=== PATIENT | male | born 1965 | race Caucasian/White ===

== ENCOUNTER 2017-01-20 04:21 | Emergency (ER) | payer OTHER, MEDICAID ==
[~2017-01-20] VITALS: Ht 177.8 cm; Wt 90.7 kg
[2017-01-20 04:21] VITALS: BP_SYST 110
--- NOTE | 2017-01-20 04:21 | NUR ---
Patient to ER bed 1 to gown for evaluation. Side rails up. Report given to CARLITO ERWIN.
--- NOTE | 2017-01-20 04:30 | NUR ---
Note marlaneno in ED - 01/20/17 at 0506 by SDNURAAMANDA Patient to be transferred to [facility]. Pt was transferred back to [facility] with exit care given to the paramedics. Patient belongings inventoried and will be sent with patient. Report called to Shaniqua Bateman RN at receiving facility.
--- NOTE | 2017-01-20 04:30 | NUR ---
Pt was bought in to ER via BLS from [facility] to check g-tube placement. Pt's information given by the paramedics. Pt nonverbal. G-tube noted at the left upper abdomen. Dressing clean and intact. Pt on treach. spo2 99%. No actue distress noted. will continue to monitor
--- NOTE | 2017-01-20 04:30 | NUR ---
ER at bedside examining patient.
[2017-01-20] MEDS ORDERED: GASTROGRAFIN 120 ML ONE (04:44)
--- NOTE | 2017-01-20 04:50 | NUR ---
Upper GI series with contrast taken. Pt comfortable. NO distress noted.
--- NOTE | 2017-01-20 04:55 | NUR ---
Patient to be transferred to [facility]. Pt was transferred back to [facility] with exit care given to the paramedics. Patient belongings inventoried and will be sent with patient. Report called to Shaniqua Bateman RN at receiving facility.
== END 2017-01-20 04:55 | disposition home or self-care (01) ==
LOC: SED 04:21
DX: Z43.1 Encounter for attention to gastrostomy (principal)
CPT/HCPCS: 43760; 74240; 99284; Q9963

== ENCOUNTER 2017-03-15 20:17 | Emergency (ER) | payer OTHER, MEDICAID ==
[~2017-03-15] VITALS: Ht 185.4 cm; Wt 84.8 kg
[2017-03-15 20:17] VITALS: BP_SYST 119
--- NOTE | 2017-03-15 20:17 | NUR ---
Patient to ER bed 8 to gown for evaluation. Side rails up. Report given to Nicola ERWIN.
--- NOTE | 2017-03-15 20:19 | NUR ---
Per pt, security system installer states that pt removed his Douglas catheter and that staff at the home facility have not been able to reinsert a new Douglas. Patient alert, eyes are able to follow when patient is spoken to. Patient not able to verbally respond, has tracheostomy and T tube. G tube present on patient. Scant blood with urine noted to patient's diaper. Per pt, security system installer denies any complaints.
--- NOTE | 2017-03-15 21:20 | NUR ---
ER Dr. Aly at bedside examining patient.
--- NOTE | 2017-03-15 21:40 | NUR ---
# 16 FR Douglas catheter with use of sterile technique. Immediate return of 40 cc yellow urine noted. Bedside drainage bag placed below level of bladder. Pt tolerated procedure well.
--- NOTE | 2017-03-15 22:30 | NUR ---
Per MD, patient is medically cleared. Awaiting transport back to facility.
--- NOTE | 2017-03-15 23:21 | NUR ---
Patient stable, no signs of distress noted. Vital signs within therapeutic range.
[2017-03-16 00:57] VITALS: BP_SYST 114
== END 2017-03-16 00:57 | disposition home or self-care (01) ==
LOC: EDBD → SED 20:17
DX: Z46.6 Encounter for fitting and adjustment of urinary device (principal); E11.9 Type 2 diabetes mellitus without complications; I10 Essential (primary) hypertension; K21.9 Gastro-esophageal reflux disease without esophagitis; Z86.2 Personal history of diseases of the blood and blood-forming organs and certain disorders involving the immune mechanism; Z93.1 Gastrostomy status
CPT/HCPCS: 99284

== ENCOUNTER 2017-03-18 03:13 | Inpatient (IN) | payer OTHER, MEDICAID ==
[2017-03-18] VITALS (7 sets, daily range): BP systolic 104–121
[~2017-03-18] VITALS: Ht 172.7 cm; Wt 85.7 kg
--- NOTE | 2017-03-18 03:13 | NUR ---
Patient to ER bed 2 to gown for evaluation. Side rails up. Report given to RISA ERWIN.
[2017-03-18] MEDS ORDERED: NACL 0.9% 1,000 ML IV ONE (03:34)
--- NOTE | 2017-03-18 03:35 | NUR ---
ANTONIO GUERRA Kwaw at bedside examining patient.
--- NOTE | 2017-03-18 03:40 | NUR ---
Patient LUKAS from [facility] with complaint of GT feeding not absorbing. [facility] personell want placement to be reconfirmed. Patient noted with 10 ml coffee brown residual.
--- NOTE | 2017-03-18 03:50 | NUR ---
# 22 gauge angiocath placed to left wrist. Use of asceptic technique. Opsite placed over site. Blood return noted. Blood for lab drawn from site. Flushed with 10 cc of normal saline. No evidence of infiltration noted. Patient tolerated well.
--- NOTE | 2017-03-18 03:50 | NUR ---
Note undone in EDM - 03/18/17 at 0514 by TOYA # [id number] angiocath placed to Left wrist. Use of asceptic technique. Opsite placed over site. Blood return noted. Blood for lab drawn from site. Flushed with 10 cc of normal saline. No evidence of infiltration noted. Patient tolerated well.
[2017-03-18 04:06] LABS: BASOPHILS % (AUTO) 0.3 % (0.0-2.0); EOSINOPHILS # (AUTO) 0.2 K/uL (0.0-0.4); EOSINOPHILS % (AUTO) 2.2 % (0.0-4.0); HEMATOCRIT 35.6 % (36-54); HEMOGLOBIN 11.6 g/dL (14.0-18.0); LYMPHOCYTES # (AUTO) 2.4 K/uL (1.0-5.5); LYMPHOCYTES % (AUTO) 25.9 % (20.5-51.5); MEAN CORPUSCULAR HEMOGLOBIN 30 pg (27-31); MEAN CORPUSCULAR HGB CONC 33 % (32-36); MEAN CORPUSCULAR VOLUME 93 fL (79.0-98.0); MONOCYTES # (AUTO) 0.9 K/uL (0.0-1.0); MONOCYTES % (AUTO) 10.4 % (1.7-9.3); NEUTROPHILS # (AUTO) 5.6 K/uL (1.8-7.7); NEUTROPHILS % (AUTO) 61.2 % (40.0-70.0); PLATELET COUNT (AUTO) 394 K/uL (130-430); RED BLOOD CELL COUNT(AUTO) 3.82 MIL/uL (4.2-6.2); RED CELL DISTRIBUTION WIDTH 13.2 % (9.0-15.0); WHITE BLOOD COUNT (AUTO) 9.1 K/uL (4.8-10.8)
[2017-03-18 04:17] LABS: CALCIUM 9.3 mg/dL (8.4-11.0); CREATININE 0.99 mg/dL (0.55-1.30); POTASSIUM 3.4 mmol/L (3.5-5.1)
[2017-03-18 04:22] LABS: TOTAL BILIRUBIN 1.5 mg/dL (0.0-1.0)
[2017-03-18 04:30] LABS: ALBUMIN 2.2 g/dL (3.4-4.8)
[2017-03-18] MEDS ORDERED: FAMOTIDINE PF 20 MG/2 ML VIAL IVP ONE (04:45)
[2017-03-18] MEDS ORDERED: NACL 0.9% 1,000 ML IV SCH ×2 (04:53→05:00)
[2017-03-18] MEDS ORDERED: ONDANSETRON HCL 4 MG/2 ML VIAL IVP PRN ×2 (05:00→10:00)
[2017-03-18] MEDS ORDERED: ACETAMINOPHEN 325 MG TABLET PO PRN ×2 (05:00→10:00)
[2017-03-18] MEDS ORDERED: MORPHINE 2 MG/ML INJ. SYRINGE IVP PRN ×3 (05:00→10:00)
[2017-03-18] MEDS ORDERED: IPRATROPIUM/ALBUTEROL SULFATE 3 ML AMPUL.NEB INH PRN (05:00)
--- NOTE | 2017-03-18 05:05 | NUR ---
No adverse reactions noted after medication administration. Will continue to monitor.
[2017-03-18] MEDS ORDERED: ASPI-1063 GT (05:12)
[2017-03-18] MEDS ORDERED: TOPI200T GT (05:12)
[2017-03-18] MEDS ORDERED: [UNRECOGNIZED DRUG - CODE] GT (05:12)
[2017-03-18] MEDS ORDERED: ASCO500T20 GT (05:12)
[2017-03-18] MEDS ORDERED: LEVE500S GT (05:12)
[2017-03-18] MEDS ORDERED: FER300L GT (05:12)
[2017-03-18] MEDS ORDERED: ACET-2165 GT (05:12)
[2017-03-18] MEDS ORDERED: NAPH1POW3 GT (05:12)
[2017-03-18] MEDS ORDERED: HYT1 GT (05:12)
[2017-03-18] MEDS ORDERED: POLY17PO4 GT (05:12)
[2017-03-18] MEDS ORDERED: SENN8.8S12 GT (05:12)
[2017-03-18] MEDS ORDERED: MAGN400T10 GT (05:12)
[2017-03-18] MEDS ORDERED: FAMO20TA8 GT (05:13)
[2017-03-18] MEDS ORDERED: CLON2TAB4 GT (05:13)
[2017-03-18] MEDS ORDERED: DEPAK250 GT (05:13)
[2017-03-18] MEDS ORDERED: LEVO100T9 GT (05:13)
[2017-03-18] MEDS ORDERED: PHEN100O4 GT (05:13)
--- NOTE | 2017-03-18 05:13 | NUR ---
Medication reconciliation completed with information provided by [facility]. Any prior medication reconciliation on file was reviewed and corrected.
--- NOTE | 2017-03-18 05:14 | NUR ---
Patient will be admitted to care of Dr. Javier. Admitted to Telemetry unit. Will go to room 119A. Belongings list completed. Summary report printed. Report will be given at bedside.
[2017-03-18 05:25] LABS: FREE T4 (FREE THYROXINE) 1.1 ng/dl (0.8-1.5); PHOSPHORUS 5.5 mg/dL (2.7-4.5); THYROID STIMULATING HORMONE 8.17 uIu/mL (0.36-3.74)
--- NOTE | 2017-03-18 05:28 | NUR ---
ADMIT NOTE Received pt from ER to the floor with a diagnosis of nephrolithiasis. Admission process initiated. patient oriented to pain management, safety and call light-teach back done.
--- NOTE | 2017-03-18 05:30 | NUR ---
Patient transferred to Telemetry unit room 119A. Report given to Samuel ERWIN.
[2017-03-18 06:04] LABS: BILIRUBIN,URINE 2+ (NEGATIVE); BLOOD, URINE 2+ (NEGATIVE); CLARITY/URINE CLOUDY (CLEAR); COLOR,URINE YELLOW (YELLOW); GLUCOSE,URINE NEGATIVE (NEGATIVE); KETONES,URINE NEGATIVE (NEGATIVE); LEUKOCYTE ESTERASE ,URINE 3+ (NEGATIVE); NITRITE, URINE NEGATIVE (NEGATIVE); PROTEIN URINE 1+ (NEGATIVE)
[2017-03-18 06:06] LABS: UROBILINOGEN,URINE >=8 (0.2-1.0)
[2017-03-18 06:10] LABS: BACTERIA,URINE MODERATE /HPF (None Seen); WBC,URINE >100 /HPF (0-3)
[2017-03-18 06:11] LABS: MUCUS,URINE None Seen /LPF (None Seen)
[2017-03-18] MEDS: CEFTRIAXONE SOD 1 GM/ DEXTROSE,ISO 50 ML PREMIX IV SCH (06:32)
[2017-03-18] MEDS ORDERED: cefTRIAXone 1 GM IVPB PREMIX 50 ML IV ONE (06:38)
--- NOTE | 2017-03-18 06:56 | NUR ---
Closing notes Patient awake, alert, oriented x2-3, slurred speech, hx of cerebral palsy. Patient able to state name, birthday, and able to follow simple commands. Patient hx of seizures, with seizure pads on rails. Patient seen by RT on admission, Trach T bar noted with 3 liters of oxygen flow. Suction equipment in room working condition. Patient with heels offloading and skin noted dry and cracking. Back clear. Buttock noted with linear gluteal slit open skin, picture taken. Patient needs assistance [id number]. Gtube needs placement confirmation, noted abdomen firm and distended. Will endorse information. Patient denies any pain or discomfort at this time. Vital signs within normal baseline.
--- NOTE | 2017-03-18 08:18 | NUR ---
Nutrition Update Johnathan Scale 13 noted. Pt admitted for nephrolithiasis. Diet: Fibersource HN at 40 ml/hr, Free Water Flush: 30 via GT BMI: 28.9 kg/m2 RD to follow per nutrition care standards.
--- NOTE | 2017-03-18 08:20 | NUR ---
Opening Note Patient awake and A/o x2. Follows simple commands. Patient has a Trach to Tbar at 3L. Breathing is shallow and diminished low lobes bilaterally. Abdomen distended with normoactive bowel sounds. Some bleeding noted in and around GTube, placement checked and gastric content residual noted. IV on left arm obstructed and new 22G IV placed on left hand running NS. Redness/blotchy discoloration on face noted. Patient placed for comfort, call light in reach.
[2017-03-18] MEDS ORDERED: COMMUNICATION ORDER XX ONE (08:45)
[2017-03-18] MEDS ORDERED: ACETAMINOPHEN 325 MG TABLET GT PRN ×2 (08:45→10:31)
[2017-03-18] MEDS ORDERED: cefTRIAXone 1 GM VIAL IV SCH (09:00)
[2017-03-18] MEDS ORDERED: DOCUSATE SODIUM 100 MG CAPSULE PO SCH (09:00)
[2017-03-18] MEDS ORDERED: DOCUSATE SODIUM 100 MG/10 ML UDC GT SCH (09:00)
[2017-03-18] MEDS ORDERED: DOCUSATE SODIUM 100 MG CAPSULE PO PRN (10:00)
[2017-03-18] MEDS ORDERED: ZOLPIDEM TARTRATE 5 MG TABLET PO PRN (10:00)
[2017-03-18] MEDS ORDERED: LORazepam 2 MG/ML VIAL IVP PRN (10:00)
[2017-03-18] MEDS ORDERED: MAGNESIUM SULFATE 50 ML IV PRN (10:00)
[2017-03-18] MEDS ORDERED: POTASSIUM CHLORIDE 20 MEQ TAB.PRT.SR PO ONE (10:00)
--- NOTE | 2017-03-18 10:00 | NUR ---
Rounds Wound care and hygiene provided. Extremities elevated on pillows, patient repositioned, call light in reach.
[2017-03-18] MEDS ORDERED: POTASSIUM CHLORIDE 20 MEQ/PKT PACKET PO ONE (10:45)
[2017-03-18] MEDS: D5NS 1,000 ML IV SCH (11:17)
--- NOTE | 2017-03-18 12:00 | NUR ---
Rounds Ultrasound of abdomen done. Patient resting in bed and stable.
[2017-03-18] MEDS: PHENYTOIN 100 MG/4 ML UDC (DILANTIN) GT SCH ×2 (13:11→21:28)
[2017-03-18] MEDS: VALPROIC ACID ORAL SYRUP 250 MG/5 ML UDC GT SCH ×2 (13:12→21:28)
--- NOTE | 2017-03-18 14:22 | NUR ---
Dr Dale Tijerina Notified him of the Labetalol and received new orders.
--- NOTE | 2017-03-18 14:44 | NUR ---
CONSULT GI GT MALFUNCTION DR TOVAR [phone] DR RHOADES MANAGER [facility] S/W [place] OFFICE @ 1821
--- NOTE | 2017-03-18 14:46 | NUR ---
CONSULT UROLOGY SEV HYDRONEPHROSIS DR OLEARY [phone] S/W [place] OFFICE @ 7511
--- NOTE | 2017-03-18 15:54 | NUR ---
Called patient's POA. Tameka Wilson for EGD consent Unable to reach her but spoke to officer Laly who is covering, she stated she will contact Tameka Wilson via Email regarding the need for consent for EGD, and they will get back to us with consent by tomorrow. If not Just call Tameka Wilson again.
--- NOTE | 2017-03-18 17:11 | NUR ---
Dr Doe - Urologist called back Notified him of the consult and CT scan results.
--- NOTE | 2017-03-18 17:40 | NUR ---
Consent for EGD Written consent received from Carmen Chakraborty from [facility]. Carmen spoke to Dr. Farias.
--- NOTE | 2017-03-18 18:15 | NUR ---
Dr Nader scott Md stated he wants to do a stent placement. Possibly tomorrow.
--- NOTE | 2017-03-18 18:16 | NUR ---
Called Tameka Wilson at the [facility]- left voice mail. Also left a voice message to the "traffic control officer" regarding need for consent. Will call again later or tomorrow.
--- NOTE | 2017-03-18 18:36 | NUR ---
Closing Note Patient stable and resting in bed. All needs met throughout shift. Patient is NPO except meds for EGD tomorrow.
[2017-03-18 19:29] LABS: PROTHROMBIN TIME 11.1 SECS (9.5-12.5)
--- NOTE | 2017-03-18 20:00 | NUR ---
Initial Notes Received patient resting in bed, awake, alert, oriented to name and place. Patient denies any acute distress or pain at this time. Vital signs stable. Breathing is even and unlabored on 3L via t-bar. IV site patent/clean/dry. G-tube site has small active bleeding noted on g-tube dressing, new dressing applied, will continue to monitor. Douglas draining yellow urine with sediments to gravity. Trach suctioning provided. Patient repositioned for comfort. Call light in hand, fall precautions in place. Will continue to monitor for changes and safety.
[2017-03-18] MEDS: PANTOPRAZOLE SODIUM 40 MG/VIAL (PROTONIX) IVP SCH (21:27)
[2017-03-18] MEDS: TOPIRAMATE 100 MG TABLET(Topamax) GT SCH (21:27)
[2017-03-18] MEDS: FERROUS SULFATE 300 MG/5 ML UDC GT SCH (21:28)
[2017-03-18] MEDS: levETIRAcetam 500 MG TABLET GT SCH (21:28)
--- NOTE | 2017-03-18 22:00 | NUR ---
Rounds Patient resting in bed watching TV. Patient denies any acute distress or pain at this time. Breathing is even and unlabored, trach suctioning provided. Douglas draining to gravity. Patient remains NPO for procedure tomorrow. Patient repositioned, HOB elevated. Call light in hand, will continue to monitor.
--- NOTE | 2017-03-19 | NUR ---
Rounds Patient resting in bed watching TV. Patient denies any acute distress or pain at this time. Breathing is even and unlabored, trach suctioning provided. IV site patent/clean/dry. Douglas draining to gravity. Patient had large pasty bowel movement, assisted REAL ESTATE ANALYST with incontinence care. Patient repositioned for comfort. Call light in hand, fall precautions in place.
[2017-03-19] MEDS: D5NS 1,000 ML IV SCH ×2 (00:45→14:35)
[2017-03-19 01:02] VITALS: BP_SYST 118
--- NOTE | 2017-03-19 02:00 | NUR ---
Rounds Patient resting in bed with eyes closed, easily aroused upon nurse entering room. Patient denies any acute distress or pain at this time. Breathing is even and unlabored, trach and oral suctioning provided. IV site patent/clean/dry. Douglas cath draining to gravity. Patient repositioned for comfort. Patient remains NPO. Call light in hand, will continue to monitor.
[2017-03-19 03:24] VITALS: BP_SYST 120
--- NOTE | 2017-03-19 04:00 | NUR ---
Rounds Patient resting in bed with eyes closed, easily aroused. Patient denies any acute distress or pain at this time. Breathing is even and unlabored. IV site patent/clean/dry. Douglas cath draining to gravity. Patient repositioned for comfort. Patient remains NPO. Call light in hand, will continue to monitor.
[2017-03-19] MEDS: CEFTRIAXONE SOD 1 GM/ DEXTROSE,ISO 50 ML PREMIX IV SCH (06:04)
[2017-03-19] MEDS: VALPROIC ACID ORAL SYRUP 250 MG/5 ML UDC GT SCH ×3 (06:05→21:12)
[2017-03-19] MEDS: PHENYTOIN 100 MG/4 ML UDC (DILANTIN) GT SCH ×3 (06:05→21:12)
[2017-03-19] MEDS: LEVOTHYROXINE SODIUM 0.1 MG TABLET GT SCH (06:05)
--- NOTE | 2017-03-19 06:33 | NUR ---
Closing Notes Patient resting in bed with eyes closed, easily aroused, no change in mentation. Patient denies any acute distress or pain. Breathing is even and unlabored, trach suctioning provided. IV site patent/clean/dry, no S/S infection/infiltration noted. Douglas cath draining yellow urine to gravity. Patient remains NPO for procedure today. All needs addressed throughout shift. Call light in hand, fall precautions in place. Will continue to monitor for changes and safety, and endorse all patient care/needs to oncoming nurse.
[2017-03-19 06:42] LABS: BASOPHILS % (AUTO) 0.3 % (0.0-2.0); EOSINOPHILS # (AUTO) 0.3 K/uL (0.0-0.4); EOSINOPHILS % (AUTO) 4.1 % (0.0-4.0); HEMATOCRIT 32.4 % (36-54); HEMOGLOBIN 10.8 g/dL (14.0-18.0); LYMPHOCYTES # (AUTO) 1.8 K/uL (1.0-5.5); LYMPHOCYTES % (AUTO) 24.2 % (20.5-51.5); MEAN CORPUSCULAR HEMOGLOBIN 31 pg (27-31); MEAN CORPUSCULAR HGB CONC 33 % (32-36); MEAN CORPUSCULAR VOLUME 94 fL (79.0-98.0); MONOCYTES # (AUTO) 0.8 K/uL (0.0-1.0); MONOCYTES % (AUTO) 11.1 % (1.7-9.3); NEUTROPHILS # (AUTO) 4.5 K/uL (1.8-7.7); NEUTROPHILS % (AUTO) 60.3 % (40.0-70.0); PLATELET COUNT (AUTO) 400 K/uL (130-430); RED BLOOD CELL COUNT(AUTO) 3.45 MIL/uL (4.2-6.2); WHITE BLOOD COUNT (AUTO) 7.4 K/uL (4.8-10.8)
[2017-03-19 06:47] LABS: PROTHROMBIN TIME 11.2 SECS (9.5-12.5)
[2017-03-19 06:56] LABS: CALCIUM 9.1 mg/dL (8.4-11.0); CREATININE 0.95 mg/dL (0.55-1.30); PHOSPHORUS 3.1 mg/dL (2.7-4.5); POTASSIUM 3.4 mmol/L (3.5-5.1)
[2017-03-19] MEDS: MEPERIDINE HCL/PF 100 MG/ML AMP ONE ×3 (07:39→08:16)
[2017-03-19] MEDS: MIDAZOLAM HCL 5 MG/5 ML VIAL ONE ×3 (07:39→08:16)
--- NOTE | 2017-03-19 07:51 | NUR ---
OPENING NOTE RECEIVED PATIENT REPORT FROM FIELD EVIDENCE TECHNICIAN NURSEIAN. PATIENT IS RESTING COMFORTABLY. NO NOTABLE SIGNS OF DISTRESS. PATIENT HAS TRACH IN PLACE AND TBAR OXYGEN AT 3L. PATIENT HAS IV RUNNING PER MD ORDERS. PATIENT IS CURRENTLY NPO, TUBE FEEDINGS DISCONTINUED AT MIDNIGHT IN PREP FOR EGD, TO CHECK GTUBE PLACEMENT. PATIENT HAS MILD BLEEDING AT GTUBE SITE. PATIENT IS ON SEIZURE PRECAUTIONS, PFEIFFER CATHETER DRAINING TO GRAVITY. PATIENT HAS SCDS APPLIED AND LOW AIR LOSS MATTRESS. PATIENTS BED IN LOWEST POSITION, CALL LIGHT WITHIN REACH, AND SIDE RAILS ARE UP FOR SAFETY MEASURES. WILL CONTINUE TO MONITOR PATIENT FOR CHANGES IN STATUS. PATIENT TO HAVE EGD, CONSENT IS SIGNED AND IN THE CHART. MEASURES HAVE BEEN TAKEN TO OBTAIN CONSENT FOR CYSTOSCOPY WITH STENT PLACEMENT. PATIENT HAS CONSERVATOR THAT WILL BE RESPONSIBLE FOR CONSENT SIGNING. WILL FOLLOW UP.
[2017-03-19 08:13] LABS: T4 (THYROXINE) 8.9 ug/dL (4.5-12.0)
--- NOTE | 2017-03-19 08:38 | NUR ---
CONSENT SPOKE WITH JACOB PULIDO REGARDING CONSENT FOR CYSTOSCOPY WITH STENT PLACEMENT. PHONE NUMBERS WERE GIVEN FOR DR. OLEARY AND DR. JUAREZ. INFORMATION WILL BE GIVEN TO MEDICAL TEAM, AWAITING CONSENT FOR PROCEDURE.
--- NOTE | 2017-03-19 08:49 | NUR ---
EGD EGD COMPLETED AT BEDSIDE WITH DR. TOVAR. PATIENT DX GASTRITIS. 1 BIOPSY PERFORMED FOR CLOTEST. MEDICATIONS: 37.5 DEMEROL; 1.5 VERSED. OKAY TO RESUME TUBEFEEDING PER DR. TOVAR. FIBERSOURCE HN AT 50ML. FREE WATER AT 200ML. HOLD IF RESIDUAL OVER 200. RESUME AT 100ML. PATIENT VITAL SIGNS ARE STABLE AT: 103/62; 70HR; RR 12; 96%; 98.1 TEMP.
[2017-03-19 08:58] VITALS: BP_SYST 103
--- NOTE | 2017-03-19 09:13 | NUR ---
NOTE SPOKE WITH NESSA REGARDING CONSENT, INFORMATION GIVEN REGARDING DR. OLEARY. INFORMATION NEEDED WAS DR. OLEARY'S FIRST NAME, AND OFFICE PHONE NUMBER AND PROCESS NEEDED TO GET INTO CONTACT WITH DR. OLEARY. WILL CONTINUE TO FOLLOW UP NEEDED.
[2017-03-19] MEDS: PANTOPRAZOLE SODIUM 40 MG/VIAL (PROTONIX) IVP SCH ×2 (09:31→21:11)
[2017-03-19] MEDS: POLYETHYLENE GLYCOL 3350, 17 GM/ POWD.PACK GT SCH (09:31)
[2017-03-19] MEDS: FERROUS SULFATE 300 MG/5 ML UDC GT SCH ×2 (09:31→21:12)
[2017-03-19] MEDS: ASPIRIN 81 MG TAB.CHEW GT SCH (09:32)
[2017-03-19] MEDS: TOPIRAMATE 100 MG TABLET(Topamax) GT SCH ×2 (09:32→21:12)
[2017-03-19] MEDS: levETIRAcetam 500 MG TABLET GT SCH ×2 (09:32→21:11)
[2017-03-19] MEDS: TERAZOSIN HCL 1 MG CAPSULE (HYTRIN) GT SCH (09:32)
[2017-03-19] MEDS ORDERED: IOHEXOL 0 ML IV ONE (09:41)
--- NOTE | 2017-03-19 09:53 | NUR ---
TUBEFEEDING HELD TUBEFEEDING PATIENT IS NEEDING PROCEDURE CYSTOSCOPY WITH STENT PLACEMENT. AWAITING CONSENT FOR PROCEDURE FROM CONSERVATOR.
--- NOTE | 2017-03-19 11:04 | NUR ---
1000 NOTE PATIENT IS RESTING COMFORTABLY. NO NOTABLE SIGNS OF DISTRESS. PATIENT HAS TRACH IN PLACE AND TBAR OXYGEN AT 3L. PATIENT HAS IV RUNNING PER MD ORDERS. PATIENT IS CURRENTLY NPO, TUBE FEEDINGS DISCONTINUED AT MIDNIGHT IN PREP FOR CYSTOSCOPY AND EGD. PATIENT HAS MILD BLEEDING AT GTUBE SITE. DRESSING CHANGE NEEDED. PATIENT IS ON SEIZURE PRECAUTIONS, PFEIFFER CATHETER DRAINING TO GRAVITY. PATIENT HAS SCDS APPLIED AND LOW AIR LOSS MATTRESS. PATIENTS BED IN LOWEST POSITION, CALL LIGHT WITHIN REACH, AND SIDE RAILS ARE UP FOR SAFETY MEASURES. WILL CONTINUE TO MONITOR PATIENT FOR CHANGES IN STATUS. MEASURES HAVE BEEN TAKEN TO OBTAIN CONSENT FOR CYSTOSCOPY WITH STENT PLACEMENT. PATIENT HAS CONSERVATOR THAT WILL BE RESPONSIBLE FOR CONSENT SIGNING. WILL CONTINUE TO FOLLOW UP.
[2017-03-19 11:39] VITALS: BP_SYST 102
--- NOTE | 2017-03-19 11:58 | NUR ---
POWER OF WAX PATTERN REPAIRER SPOKE WITH SARAH BETH PERLA REGARDING STATUS OF CONSENT FOR CYSTOSCOPY WITH STENT PLACEMENT. SHE WILL CALL BACK, GIVEN DIRECT LINE EXTENSION.
--- NOTE | 2017-03-19 12:22 | NUR ---
URINE RESULTS KIAN FROM LAB CALLED REGARDING URINE CULTURE: SHOWS PRESUMPTIVE MRSA. WILL CALL CATHIE REGARDING RESULTS.
--- NOTE | 2017-03-19 12:28 | NUR ---
CATHIE BAUTISTA SPOKE WITH DR. BRAND REGARDING EKG FOR SURGERY, AND URINE CULTURE RESULTS. STAT EKG TO BE ORDERED AND VANCO PER PHARMACY. ORDERS TO BE ENTERED BY RN.
--- NOTE | 2017-03-19 12:42 | NUR ---
CONSERVATOR: SPOKE WITH SARAH BETH PERLA "NEXT OF KIN" REGARDING STATUS AND PROCESS IN WHICH WE NEED TO FOLLOW FOR THE CONSENT, WELL CHECKING STATUS. SHE STATED THE NURSE DAVID WAS CALLING HER ON THE OTHER LINE AND SHE WOULD CALL BACK.
--- NOTE | 2017-03-19 12:43 | NUR ---
CONSERVATOR/CONSENT: SPOKE WITH DAVID BOWLING THE NURSE THAT IS TO PRESENT INFORMATION FOR CONSENT. SHE STATES SHE HAS BEEN TRYING TO GET IN CONTACT WITH DR. OLEARY THROUGH HIS OFFICE BUT HAS NOT HEARD FROM HIM. I TOLD HER HE WAS IN THE FACILITY COMPLETING ANOTHER CASE AND THAT THE NURSE FROM THE OPERATING ROOM WAS STANDING WITH ME AT THE NURSES STATION. I WAS GIVEN HER DIRECT LINE, AND TOLD: "WE NEED THE RISKS VERSUS BENEFITS OF PROCEDURE FROM DR. OLEARY, ONCE WE HAVE THE INFORMATION WE WILL BE ABLE TO PRESENT THE CASE TO THE MEDICAL TEAM." HER DIRECT LINE WAS WRITTEN AND GIVEN TO JONELLE, NURSE, TO BE GIVEN TO DR. OLEARY FOR THE PROCESS TO BEGIN. DR. OLEARY IS OKAY WITH SENDING THE PATIENT TO [facility] TOMORROW. WILL FOLLOW UP WITH JONELLE.
--- NOTE | 2017-03-19 15:10 | NUR ---
PATIENT CARE: PATIENTS FACE HAD LARGE SKIN FLAKES, DRY LIPS, AND, ORAL CARE NEEDED TO COMPLETED. FACE WAS CLEANSED WITH CLEANSING SPRAY AND GAUZE, LOTION APPLIED. PATIENT ORAL CARE COMPLETED, SUCTIONING NEEDED. PATIENT HAD LOTION APPLIED TO UPPER CHEST, FACE, AND NECK. PATIENT REPOSITIONED WITH PILLOW SUPPORT.
--- NOTE | 2017-03-19 16:46 | NUR ---
1600 NOTE PATIENT IS RESTING COMFORTABLY. NO NOTABLE SIGNS OF DISTRESS. PATIENT HAS TRACH IN PLACE AND TBAR OXYGEN AT 3L. PATIENT HAS IV RUNNING PER MD ORDERS. PATIENT IS CURRENTLY NPO, TUBE FEEDINGS DISCONTINUED AT MIDNIGHT IN PREP FOR CYSTOSCOPY AND EGD. AWAITING MD ORDERS TO RESUME FEEDING. PHONE CALL PLACED TO MD VIA OFFICE. PATIENT HAS MILD BLEEDING AT GTUBE SITE. DRESSING CHANGE NEEDED. PATIENT IS ON SEIZURE PRECAUTIONS, PFEIFFER CATHETER DRAINING TO GRAVITY. PATIENT HAS SCDS APPLIED AND LOW AIR LOSS MATTRESS. PATIENTS BED IN LOWEST POSITION, CALL LIGHT WITHIN REACH, AND SIDE RAILS ARE UP FOR SAFETY MEASURES. WILL CONTINUE TO MONITOR PATIENT FOR CHANGES IN STATUS. MEASURES HAVE BEEN TAKEN TO OBTAIN CONSENT FOR CYSTOSCOPY WITH STENT PLACEMENT. PATIENT HAS CONSERVATOR THAT WILL BE RESPONSIBLE FOR CONSENT SIGNING. WILL CONTINUE TO FOLLOW UP.
[2017-03-19 17:53] VITALS: BP_SYST 104
[2017-03-19] MEDS: VANCOMYCIN HCL 1,250 MG in NS 250 ML IV SCH (18:16)
--- NOTE | 2017-03-19 18:25 | NUR ---
1310 SUCTIONED THICK WHITE SECRETIONS. Addendum: 03/19/17 at 1827 by Irma Mccartney RT Amended: Links added.
--- NOTE | 2017-03-19 19:06 | NUR ---
1600/CLOSING NOTE AWAITING TO GIVE REPORT TO LATEX FOAM WORKER NURSE. PATIENT IS RESTING COMFORTABLY. NO NOTABLE SIGNS OF DISTRESS. PATIENT HAS TRACH IN PLACE AND TBAR OXYGEN AT 3L. PATIENT HAS IV RUNNING PER MD ORDERS. SPOKE WITH MARIELA HERNDON TO RESUME TUBEFEEDING FOR NOW, WHILE AWAITING CONSENT FOR SURGERY. PATIENT HAS MILD BLEEDING AT GTUBE SITE. DRESSING CHANGE NEEDED. PATIENT IS ON SEIZURE PRECAUTIONS, PFEIFFER CATHETER DRAINING TO GRAVITY. PATIENT HAS SCDS APPLIED AND LOW AIR LOSS MATTRESS. PATIENTS BED IN LOWEST POSITION, CALL LIGHT WITHIN REACH, AND SIDE RAILS ARE UP FOR SAFETY MEASURES. WILL CONTINUE TO MONITOR PATIENT FOR CHANGES IN STATUS. MEASURES HAVE BEEN TAKEN TO OBTAIN CONSENT FOR CYSTOSCOPY WITH STENT PLACEMENT. PATIENT HAS CONSERVATOR THAT WILL BE RESPONSIBLE FOR CONSENT SIGNING. SPOKE WITH DR. OLEARY WITHIN THE HOUR REGARDING TUBEFEEDING RESUME, ALSO CHECKED TO SEE IF HE WAS ABLE TO CALL NESSA WITH THE INFORMATION NEEDED. STATES HE WILL CALL AND TAKE CARE OF IT. Addendum: 03/19/17 at 1909 by Vee Maddox RN 1800/CLOSING NOTE
[2017-03-19 20:00] VITALS: BP_SYST 110
--- NOTE | 2017-03-19 20:00 | NUR ---
Initial Notes Received patient resting in bed with eyes closed, easily aroused. Patient oriented to name and place, developmentally delayed. Patient denies any acute distress or pain at this time. Vital signs stable. Breathing is even and unlabored on 3L via t-bar. IV site patent/clean/dry. G-tube site has small active bleeding noted on g-tube dressing, will continue to monitor. Douglas draining cloudy yellow urine with sediments to gravity. Trach and oral suctioning provided, thick white secretions noted. Patient repositioned for comfort. Monitoring tube feeding and residual to determine tolerance at this time, HOB elevated. Call light in hand, fall precautions in place. Will continue to monitor for changes and safety.
--- NOTE | 2017-03-19 22:00 | NUR ---
Rounds Patient resting in bed with eyes closed, easily aroused. Patient denies any acute distress or pain at this time. Breathing is even and unlabored, trach suctioning provided. Douglas cath draining to gravity. IV site patent/clean/dry. Patient repositioned for comfort, HOB elevated. Call light in hand.
[2017-03-20] VITALS (7 sets, daily range): BP systolic 101–135
--- NOTE | 2017-03-20 | NUR ---
Rounds Patient resting in bed with eyes closed, easily aroused. Patient denies any acute distress or pain at this time. Breathing is even and unlabored. Douglas cath draining to gravity. IV site patent/clean/dry. G-tube feeding residual checked, 250ml, feeding stopped per MD orders. Patient repositioned for comfort, HOB. Call light in hand, fall precautions in place.
[2017-03-20 00:16] LABS: HEMOGLOBIN A1C 5.2 % (4.8-5.6)
--- NOTE | 2017-03-20 02:00 | NUR ---
Rounds Patient resting in bed with eyes closed, easily aroused. Patient denies any acute distress or pain at this time. Trach and oral suctioning provided. G-tube residual checked, 210ml, patient not tolerating tube feeding. G-tube flushed to maintain patency and clamped, will inform MD in AM patient unable to tolerate feeding. Patient repositioned for comfort. Call light in hand.
[2017-03-20] MEDS: VANCOMYCIN HCL 1,250 MG in NS 250 ML IV SCH (03:54)
--- NOTE | 2017-03-20 04:30 | NUR ---
Rounds Patient resting in bed watching TV. Patient denies any acute distress or pain at this time. Breathing is even and unlabored. IV site patent/clean/dry. Douglas draining to gravity. Patient had large brown pasty bowel movement. Assisted WORKERS' COMPENSATION MAGISTRATE with incontinence care, CHG bath, and linen change. Rechecked g-tube feeding residual, 160ml, continuing to hold tube feeding. HOB elevated. Call light in hand.
[2017-03-20] MEDS: LEVOTHYROXINE SODIUM 0.1 MG TABLET GT SCH (06:01)
[2017-03-20] MEDS: VALPROIC ACID ORAL SYRUP 250 MG/5 ML UDC GT SCH ×3 (06:01→22:06)
[2017-03-20] MEDS: CEFTRIAXONE SOD 1 GM/ DEXTROSE,ISO 50 ML PREMIX IV SCH (06:01)
[2017-03-20] MEDS: PHENYTOIN 100 MG/4 ML UDC (DILANTIN) GT SCH ×3 (06:02→22:05)
[2017-03-20 06:27] LABS: BASOPHILS % (AUTO) 0.4 % (0.0-2.0); EOSINOPHILS # (AUTO) 0.3 K/uL (0.0-0.4); HEMATOCRIT 29.9 % (36-54); LYMPHOCYTES # (AUTO) 1.9 K/uL (1.0-5.5); LYMPHOCYTES % (AUTO) 30.9 % (20.5-51.5); MEAN CORPUSCULAR HEMOGLOBIN 32 pg (27-31); MEAN CORPUSCULAR HGB CONC 34 % (32-36); MEAN CORPUSCULAR VOLUME 94 fL (79.0-98.0); MONOCYTES # (AUTO) 0.6 K/uL (0.0-1.0); MONOCYTES % (AUTO) 10.3 % (1.7-9.3); NEUTROPHILS # (AUTO) 3.5 K/uL (1.8-7.7); NEUTROPHILS % (AUTO) 53.4 % (40.0-70.0); PLATELET COUNT (AUTO) 366 K/uL (130-430); RED BLOOD CELL COUNT(AUTO) 3.17 MIL/uL (4.2-6.2); RED CELL DISTRIBUTION WIDTH 12.8 % (9.0-15.0); WHITE BLOOD COUNT (AUTO) 6.3 K/uL (4.8-10.8)
[2017-03-20 06:36] LABS: CALCIUM 8.9 mg/dL (8.4-11.0); POTASSIUM 3.3 mmol/L (3.5-5.1)
[2017-03-20 06:37] LABS: CREATININE 0.75 mg/dL (0.55-1.30)
--- NOTE | 2017-03-20 06:39 | NUR ---
Closing Notes Patient resting with eyes closed, easily aroused, no change in mentation. Patient denies any acute distress or pain at this time. Breathing is even and unlabored, trach suctioning provided. IV site patent/clean/dry, no S/S infection/infiltration noted. Douglas draining cloudy yellow urine to gravity. G-tube feeding remains off per MD orders due to excessive residual. Needs addressed throughout shift. Call light in hand, fall precautions in place. Will continue to monitor for changes and safety, and endorse all patient care/needs to oncoming nurse.
--- NOTE | 2017-03-20 07:55 | NUR ---
initial notes rec patient asleep but arousable to stimuli. hob slightly elevated with a trache at 3 liters connected to t bar. no acute distress noted. gt feeding is held right now and will continue to monitor re residual. ivl infusing well on the l hand. no infiltration noted. acevedo cath intact in place. bed in low position and side rails up and locked. on contact isolation for mrsa urine.
[2017-03-20] MEDS: POLYETHYLENE GLYCOL 3350, 17 GM/ POWD.PACK GT SCH (08:51)
[2017-03-20] MEDS: D5NS 1,000 ML IV SCH (08:51)
[2017-03-20] MEDS: PANTOPRAZOLE SODIUM 40 MG/VIAL (PROTONIX) IVP SCH ×2 (08:52→22:04)
[2017-03-20] MEDS: TOPIRAMATE 100 MG TABLET(Topamax) GT SCH ×2 (08:52→22:04)
[2017-03-20] MEDS: FERROUS SULFATE 300 MG/5 ML UDC GT SCH ×2 (08:52→22:01)
[2017-03-20] MEDS: levETIRAcetam 500 MG TABLET GT SCH ×2 (08:53→22:04)
[2017-03-20] MEDS: ASPIRIN 81 MG TAB.CHEW GT SCH (08:53)
[2017-03-20] MEDS: POTASSIUM CHLORIDE 10 MEQ TAB.PRT.SR PO PRN (08:53)
--- NOTE | 2017-03-20 09:58 | NUR ---
CONSULTATION PAGED REASON FOR CONSULTATION:MDRO WAS CONSULT CALLED?:Y PERSON WHO WAS NOTIFIED:AME CONSULTING PHYSICIAN:MICHAEL DELEON FITNESS ATTENDANT SPECIALTY:INFECTIOUS DISEASE FITNESS ATTENDANT PHONE NUMBER:[phone] REQUESTING PHYSICIAN:ZEHRA CAREY
--- NOTE | 2017-03-20 10:00 | NUR ---
sonia deutsch called and spoke with shayne deutsch at 12 noon. explained to her that has to call [facility]. sec of called and spoke with hernesto and took the number of saundra from the [facility] (conservator) specified with hernesto to pls call me once speak with the conservator. will be following up re this matter.
--- NOTE | 2017-03-20 11:57 | NUR ---
1150 SUCTIONED SMALL THICK WHITE SECRETIONS. NO DISTRESS NOTED. Addendum: 03/20/17 at 1159 by Irma Mccartney RT Amended: Links added.
[2017-03-20] MEDS ORDERED: IOHEXOL 50 ML IV ONE (12:40)
--- NOTE | 2017-03-20 12:50 | NUR ---
rounds seen by at the bedside and signed informed consent. suctioned prior to picking up patient and scanty amount of whitish phlegm. pt left the floor for sx via bed. no acute distress noted.
[2017-03-20] MEDS: LR 1,000 ML IV SCH ×2 (13:10→18:03)
[2017-03-20] MEDS ORDERED: MEPERIDINE HCL/PF 25 MG/ML DISP.SYRIN IVP PRN (13:15)
[2017-03-20] MEDS ORDERED: HYDROmorphone 2 MG/ML VIAL IVP PRN ×2 (13:15)
[2017-03-20] MEDS ORDERED: HYDROmorphone 1 MG INJ. 1 MG/ML AMPUL IVP PRN (13:15)
--- NOTE | 2017-03-20 14:41 | NUR ---
Dietitian Recommendations * Recommend continuing Fibersource HN at 50 ml/hr, Free Water Flush: 200 via GT Provides: 1440 kcal/day, 65 gm protein/day, and 1172 ml free water/day Meets: 81% of lower end of estimated caloric needs and 94% of lower end of estimated protein needs LP, RD Please refer to Nutrition Assessment for details.
--- NOTE | 2017-03-20 15:00 | NUR ---
rounds pt back from rr s/p cystoscopy and stent placement. with a acevedo cath draining to light orange output. stable will monitor bp was low in rr as per nurse rn leonardo 111/51 for now.
[2017-03-20] MEDS: LEVOFLOXACIN 500 MG/D5W 100 ML IV SCH (18:05)
--- NOTE | 2017-03-20 18:16 | NUR ---
1745 TRACH CARE DONE, SUCTIONED THICK WHITE SECRETIONS. Addendum: 03/20/17 at 1816 by Irma Mccartney RT Amended: Links added.
[2017-03-20] MEDS: TERAZOSIN HCL 1 MG CAPSULE (HYTRIN) GT SCH (18:21)
[2017-03-20] MEDS: LINEZOLID 300 ML IV SCH ×2 (18:25→21:00)
--- NOTE | 2017-03-20 18:33 | NUR ---
closing notes due meds given as ordered. gt feeding was started at 30 cc/hr. no residual noted. hob elevated and no acute distress noted. trache connected to t bar at 3 liters via nasal cannula. bed in low position and side rails up and locked. resting quietly , stable needs attended.
--- NOTE | 2017-03-20 20:50 | NUR ---
CONTINUATION OF NOTES: HAS SLIGHT BLEEDING ON PENILE AREA. ONEYDA CARE DONE. TURN TO SIDE. ON SEMI FOWLERS POSITION. SECRETIONS VIA TRACHE SUCTIONED WITH GOOD COUGH REFLEX. CALL LIGHT WITHIN REACH.BED IN LOW POSITION. URINE BAG OFF FLOOR. WILL MONITOR CLOSELY.
--- NOTE | 2017-03-20 20:50 | NUR ---
INITIAL NOTES: PATIENT IN BED AWAKE,NOD HEAD WHEN TOLD HIM HIS FULL NAME. NON VERBAL. MOVES HANDS ON COMMANDS. ON O2 VIA TRACHE,FEEDING AT 30ML/HR,IVF AT 70ML/HR SITE CLEAR. PFEIFFER W./ LIGHT PINKISH WITH MUCUS ,FAIR AMOUNT. BP ST
--- NOTE | 2017-03-20 22:05 | NUR ---
MEDS ADMIN/RESIDUAL: ALL DUE G TUBE MEDS GIVEN. RESIDUAL 150ML. REFED. FEEDING RATE REMAINS AT 30ML/HR. FLUSHED GT TUBE WITH EXTRA WATER. RE TAPE G TUBE . DRESSING DRY AND INTACT.TURNED TO SIDE.
--- NOTE | 2017-03-21 00:05 | NUR ---
TURNED .PFEIFFER CARE DONE. SUCTIONED TRACHE WHITISH THIN MOD .AMT.
--- NOTE | 2017-03-21 02:05 | NUR ---
RESIDUAL: CHECKED RESIDUAL 100ML. RE FED. RATE INCREASED TO 50ML/HR. WILL MONITOR CLOSELY.
[2017-03-21 03:24] VITALS: BP_SYST 132
--- NOTE | 2017-03-21 03:30 | NUR ---
PAIN; patient nod head when asked if has pain.nod head when showed face pain level.morphien 1mg iv given
[2017-03-21] MEDS: D5NS 1,000 ML IV SCH ×2 (05:19→09:45)
--- NOTE | 2017-03-21 06:10 | NUR ---
IV MED /RESIDUAL: RESIDUAL 10 ML. RE FED.DUE MEDS IV AND GT MED GIVEN.
[2017-03-21] MEDS: PHENYTOIN 100 MG/4 ML UDC (DILANTIN) GT SCH ×2 (06:25→15:58)
[2017-03-21] MEDS: LEVOTHYROXINE SODIUM 0.1 MG TABLET GT SCH (06:28)
[2017-03-21] MEDS: VALPROIC ACID ORAL SYRUP 250 MG/5 ML UDC GT SCH ×2 (06:28→15:58)
[2017-03-21 06:29] LABS: BASOPHILS % (AUTO) 0.2 % (0.0-2.0); EOSINOPHILS # (AUTO) 0.2 K/uL (0.0-0.4); EOSINOPHILS % (AUTO) 2.7 % (0.0-4.0); HEMATOCRIT 33.6 % (36-54); HEMOGLOBIN 11.2 g/dL (14.0-18.0); LYMPHOCYTES # (AUTO) 1.6 K/uL (1.0-5.5); LYMPHOCYTES % (AUTO) 19.8 % (20.5-51.5); MEAN CORPUSCULAR HEMOGLOBIN 31 pg (27-31); MEAN CORPUSCULAR HGB CONC 34 % (32-36); MEAN CORPUSCULAR VOLUME 94 fL (79.0-98.0); MONOCYTES # (AUTO) 0.7 K/uL (0.0-1.0); MONOCYTES % (AUTO) 8.6 % (1.7-9.3); NEUTROPHILS # (AUTO) 5.4 K/uL (1.8-7.7); NEUTROPHILS % (AUTO) 68.7 % (40.0-70.0); PLATELET COUNT (AUTO) 412 K/uL (130-430); RED BLOOD CELL COUNT(AUTO) 3.58 MIL/uL (4.2-6.2); RED CELL DISTRIBUTION WIDTH 13.1 % (9.0-15.0); WHITE BLOOD COUNT (AUTO) 7.9 K/uL (4.8-10.8)
[2017-03-21] MEDS: LINEZOLID 300 ML IV SCH ×2 (06:29→18:24)
[2017-03-21 06:35] LABS: BILIRUBIN,DIRECT 0.2 mg/dL (0.0-0.3); CALCIUM 8.3 mg/dL (8.4-11.0); CREATININE 0.86 mg/dL (0.55-1.30); PHOSPHORUS 2.1 mg/dL (2.7-4.5); POTASSIUM 3.3 mmol/L (3.5-5.1); TOTAL BILIRUBIN 0.3 mg/dL (0.0-1.0)
--- NOTE | 2017-03-21 07:00 | NUR ---
CLOSING: ALL NEEDS WERE ATTENDED.NO ACUTE CARDIOPULMONARY DISTRESS .TOLERATING FEEDING FAIRLY WELL.VITAL SIGNS STABLE. SECRETIONS SUCTIONED VIA TRACHE. SAT. CONTINOUSLY ON 95-98% AT 3 LITERS PER TRACHE BAR. ALL DUE MEDS GIVE. ASPIRATIONS PRECAUTION AND SAFETY OBSERVED.NO SEIZURE .PAIN MEDS IV GIVEN. WILL GIVE REPORT TO AM RN FOR CONTINUITY OF CARE.
[2017-03-21 07:44] LABS: VANCOMYCIN,TROUGH 7.9 ug/mL (5.0-10.0)
[2017-03-21 08:00] VITALS: BP_SYST 60; BP_SYST 99
--- NOTE | 2017-03-21 08:00 | NUR ---
initial notes rec patient awake eyes open but non verbally responsive. hob elevated with a trache connected to a t bar with o2 at 3 liters via nasal cannula. no sob nited. gt with 30 cc/hr and linette well. no residual noted. acevedo cath intact draining yeloow colored output. noted with sutures and a piece of plastic on upper part of the penile area to hold the skin. noted with small amount blood around the area.bed in low position and side rails up and locked. call light within reached. will continue to monitor patient. seen by dr quinn and will transfer patient to snf today.
[2017-03-21] MEDS: TERAZOSIN HCL 1 MG CAPSULE (HYTRIN) GT SCH (09:00)
[2017-03-21] MEDS: PANTOPRAZOLE SODIUM 40 MG/VIAL (PROTONIX) IVP SCH (10:36)
[2017-03-21] MEDS: FERROUS SULFATE 300 MG/5 ML UDC GT SCH (10:36)
[2017-03-21] MEDS: POLYETHYLENE GLYCOL 3350, 17 GM/ POWD.PACK GT SCH (10:37)
[2017-03-21] MEDS: ASPIRIN 81 MG TAB.CHEW GT SCH (10:37)
[2017-03-21] MEDS: TOPIRAMATE 100 MG TABLET(Topamax) GT SCH (10:37)
[2017-03-21] MEDS: POTASSIUM CHLORIDE 10 MEQ TAB.PRT.SR PO PRN (10:37)
[2017-03-21] MEDS: levETIRAcetam 500 MG TABLET GT SCH (10:37)
[2017-03-21] MEDS: LEVOFLOXACIN 500 MG/D5W 100 ML IV SCH (10:38)
--- NOTE | 2017-03-21 11:00 | NUR ---
Discharge Planning: Pt has orders to return to [facility]; [facility] has faxed pt's information to [facility] for review. [facility] will follow up with [facility] ([phone] [phone]). Addendum: 03/21/17 at 1401 by Veronica Gonzalez LCSW [employer] spoke to Jose Armando at [facility]; pt will be going to room 504B; pt can return anytime. Transportation has been set up with [facility] ([phone]); pickle processor schedule for 5:30pm. Packet has been placed at nurses station. Nurse to nurse report #[phone].
--- NOTE | 2017-03-21 11:11 | NUR ---
rounds due meds given as ordered and linette well. gt residual is 5 at this time. pt with large amount of blackish stool noted. keep patient dry and clean. turned repositioned for comfort.
[2017-03-21 12:35] VITALS: BP_SYST 93
--- NOTE | 2017-03-21 13:00 | NUR ---
rounds no acuye distress sleeps at intervals and feedings linette well at 40 cc/hr.
--- NOTE | 2017-03-21 15:00 | NUR ---
rounds suctioned prn obtaining scanty amount of whtish phlegm. no acute distress noted. resting comfortably.
[2017-03-21 16:10] VITALS: BP_SYST 99
--- NOTE | 2017-03-21 17:00 | NUR ---
rounds report given to daryl dunne rn solar installation crew supervisor. awaiting for ambulance topick up patient.
[2017-03-21 17:03] VITALS: BP_SYST 99
--- NOTE | 2017-03-21 17:30 | NUR ---
rounds amr called and will be de;ayed will be here at 7 pm. turned repositioned for comfort. pics taken prior to transport.
--- NOTE | 2017-03-21 19:30 | NUR ---
closing notes pt was discharged to [facility]. ambulance was here. gave zyvox prior to transfer to snf, linette medication well. pt was stable with trache connected to a t bar at 3 liters no acute distress noted. with whitish thin phlegm noted. gt intact, no residual noted. ivl intact in the l hand for iv abx in the said facility. id band was removed and replaced with a paper id.
== END 2017-03-21 19:48 | DRG 393 ==
LOC: SED 03:13 → STU 04:53 → SMU 17:01
PROVIDERS: ADMIT Family Medicine; ATTEND Family Medicine
PROC: 0DB68ZX Excision of Stomach, Via Natural or Artificial Opening Endoscopic, Diagnostic (ICD-10-PCS; 2017-03-19)
PROC: 0TCB8ZZ Extirpation of Matter from Bladder, Via Natural or Artificial Opening Endoscopic (ICD-10-PCS; 2017-03-20)
PROC: 0T768DZ Dilation of Right Ureter with Intraluminal Device, Via Natural or Artificial Opening Endoscopic (ICD-10-PCS; principal; 2017-03-20 12:00)
DX: K94.23 Gastrostomy malfunction (principal); K29.71 Gastritis, unspecified, with bleeding; Z93.0 Tracheostomy status; N31.9 Neuromuscular dysfunction of bladder, unspecified; I12.9 Hypertensive chronic kidney disease with stage 1 through stage 4 chronic kidney disease, or unspecified chronic kidney disease; N13.2 Hydronephrosis with renal and ureteral calculous obstruction; B95.62 Methicillin resistant Staphylococcus aureus infection as the cause of diseases classified elsewhere; B96.5 Pseudomonas (aeruginosa) (mallei) (pseudomallei) as the cause of diseases classified elsewhere; E11.9 Type 2 diabetes mellitus without complications; N39.0 Urinary tract infection, site not specified; N21.0 Calculus in bladder; G80.9 Cerebral palsy, unspecified; F17.210 Nicotine dependence, cigarettes, uncomplicated; N18.9 Chronic kidney disease, unspecified; K21.9 Gastro-esophageal reflux disease without esophagitis; E03.9 Hypothyroidism, unspecified; G40.909 Epilepsy, unspecified, not intractable, without status epilepticus; R74.0 Nonspecific elevation of levels of transaminase and lactic acid dehydrogenase [LDH]; Y83.3 Surgical operation with formation of external stoma as the cause of abnormal reaction of the patient, or of later complication, without mention of misadventure at the time of the procedure; Z79.899 Other long term (current) drug therapy; Z79.82 Long term (current) use of aspirin; Z87.440 Personal history of urinary (tract) infections; Y92.89 Other specified places as the place of occurrence of the external cause
CPT/HCPCS: 36415; 43239; 71010; 76000; 76700-TC; 80048; 80053; 80061; 80076; 80202-TC; 81000-TC; 82150-TC; 83036; 83690-TC; 83735-TC; 83880; 84100-TC; 84436; 84439; 84443-TC; 84479; 85025; 85610-TC; 85730-TC; 87081; 87086; 87186-TC; 93005; 94010; 94640; 94760; 96361; 96374; 99285; C1758; C2625; C9113; J0696; J1956; J2020; J2175; J2250; J2270; J3370; J3475; J3490; J7030; J7042; J7050; J7120; Q9967

== ENCOUNTER 2017-04-29 13:44 | Inpatient (IN) | payer OTHER, MEDICAID ==
[~2017-04-29] VITALS: Ht 190.5 cm; Wt 83.9 kg
[~2017-04-29 13:44] MED LIST: ACET-2165 GT; ASCO500T20 GT; ASPI-1063 GT; CLON2TAB4 GT; DEPAK250 GT; FER300L GT; HYT1 GT; LEVE500S GT; MAGN400T10 GT; NAPH1POW3 GT; PHEN100O4 GT; POLY17PO4 GT; SENN8.8S12 GT; TOPI200T GT; [UNRECOGNIZED DRUG - CODE] GT
[2017-04-29 13:45] VITALS: BP_SYST 130
[2017-04-29 14:47] LABS: HEMOGLOBIN 10.1 g/dL (14.0-18.0); MEAN CORPUSCULAR HEMOGLOBIN 30 pg (27-31)
[2017-04-29] MEDS: NS 500 ML IV SCH ×2 (14:49→16:58)
[2017-04-29 15:01] LABS: HEMATOCRIT 30.6 % (36-54); MEAN CORPUSCULAR HGB CONC 33 % (32-36); MEAN CORPUSCULAR VOLUME 92 fL (79.0-98.0); PLATELET COUNT (AUTO) 391 K/uL (130-430); RED BLOOD CELL COUNT(AUTO) 3.32 MIL/uL (4.2-6.2); RED CELL DISTRIBUTION WIDTH 13.5 % (9.0-15.0); WHITE BLOOD COUNT (AUTO) 16.1 K/uL (4.8-10.8)
[2017-04-29 15:09] LABS: CALCIUM 9.7 mg/dL (8.4-11.0); CREATININE 0.64 mg/dL (0.55-1.30)
[2017-04-29 15:14] LABS: ALBUMIN 2.3 g/dL (3.4-4.8); TOTAL BILIRUBIN 0.5 mg/dL (0.0-1.0)
[2017-04-29 15:25] LABS: PROTHROMBIN TIME 10.3 SECS (9.5-12.5)
[2017-04-29 15:29] LABS: BILIRUBIN,URINE NEGATIVE (NEGATIVE); BLOOD, URINE 2+ (NEGATIVE); COLOR,URINE YELLOW (YELLOW); GLUCOSE,URINE NEGATIVE (NEGATIVE); KETONES,URINE NEGATIVE (NEGATIVE); LEUKOCYTE ESTERASE ,URINE 3+ (NEGATIVE); NITRITE, URINE NEGATIVE (NEGATIVE); PROTEIN URINE 1+ (NEGATIVE)
[2017-04-29 15:30] LABS: CLARITY/URINE SLIGHTLY CLOUDY (CLEAR)
[2017-04-29 15:40] LABS: BACTERIA,URINE MANY /HPF (None Seen); WBC,URINE >100 /HPF (0-3)
[2017-04-29 15:41] LABS: URINE AMORPHOUS PHOSPHATES 2+ /HPF (None Seen)
[2017-04-29 15:42] LABS: BAND % (MANUAL) 3 % (0-6)
[2017-04-29 15:43] LABS: ATYPICAL LYMPHOCYTES % 0 % (0-0); BASOPHILS % (MANUAL) 0 % (0-2); EOSINOPHILS % (MANUAL) 0 % (0-7); LYMPHOCYTES % (MANUAL) 30 % (20-46); MONOCYTES % (MANUAL) 10 % (0-11)
[2017-04-29] MEDS ORDERED: cefTRIAXone 1 GM IVPB PREMIX 50 ML IV ONE (16:00)
[2017-04-29] MEDS ORDERED: LEVO25TA7 GT (16:21)
[2017-04-29] MEDS ORDERED: LACT250L14 GT (16:21)
[2017-04-29 17:00] VITALS: BP_SYST 99
[2017-04-29 17:06] VITALS: BP_SYST 99
[2017-04-29] MEDS ORDERED: ZOLPIDEM TARTRATE 5 MG TABLET PO PRN (18:30)
[2017-04-29] MEDS ORDERED: MORPHINE 2 MG/ML INJ. SYRINGE IVP PRN ×2 (18:30)
[2017-04-29] MEDS ORDERED: POTASSIUM CHLORIDE 20 MEQ TAB.PRT.SR PO PRN (18:30)
[2017-04-29] MEDS ORDERED: ONDANSETRON HCL 4 MG/2 ML VIAL IVP PRN (18:30)
[2017-04-29] MEDS ORDERED: ACETAMINOPHEN 325 MG TABLET PO PRN (18:30)
[2017-04-29] MEDS ORDERED: MAGNESIUM SULFATE 50 ML IV PRN (18:30)
[2017-04-29] MEDS ORDERED: DOCUSATE SODIUM 100 MG CAPSULE PO PRN (18:30)
[2017-04-29] MEDS: NACL 0.9% 1,000 ML IV SCH (18:47)
[2017-04-29 20:00] VITALS: BP_SYST 107
[2017-04-29] MEDS ORDERED: DEXTROSE 50% JECT 50 ML DISP.SYRIN IVP PRN (20:00)
[2017-04-29] MEDS: SENNA 8.8 MG/5 ML UDC GT SCH (21:05)
[2017-04-29] MEDS: TOPIRAMATE 100 MG TABLET(Topamax) GT SCH (21:06)
[2017-04-29] MEDS: HEPARIN SODIUM,PORCINE 5000 UNITS/ML VIAL SUBCUT SCH (21:10)
[2017-04-29] MEDS: VALPROIC ACID 250 MG CAPSULE (DEPAKENE) GT SCH (21:28)
[2017-04-29] MEDS: PHENYTOIN 100 MG/4 ML UDC (DILANTIN) GT SCH (21:29)
[2017-04-29 22:00] VITALS: BP_SYST 99
[2017-04-30 01:09] VITALS: BP_SYST 111
[2017-04-30 05:32] VITALS: BP_SYST 118
[2017-04-30] MEDS: VALPROIC ACID 250 MG CAPSULE (DEPAKENE) GT SCH ×3 (05:54→22:59)
[2017-04-30] MEDS: PHENYTOIN 100 MG/4 ML UDC (DILANTIN) GT SCH ×3 (05:54→23:07)
[2017-04-30] MEDS: LEVOTHYROXINE SODIUM 0.1 MG TABLET GT SCH (05:54)
[2017-04-30 07:03] LABS: BASOPHILS % (AUTO) 0.3 % (0.0-2.0); EOSINOPHILS # (AUTO) 0.1 K/uL (0.0-0.4); EOSINOPHILS % (AUTO) 1.7 % (0.0-4.0); HEMATOCRIT 30.2 % (36-54); LYMPHOCYTES % (AUTO) 25.7 % (20.5-51.5); MEAN CORPUSCULAR HEMOGLOBIN 31 pg (27-31); MEAN CORPUSCULAR HGB CONC 33 % (32-36); MEAN CORPUSCULAR VOLUME 94 fL (79.0-98.0); MONOCYTES # (AUTO) 0.9 K/uL (0.0-1.0); MONOCYTES % (AUTO) 11.9 % (1.7-9.3); NEUTROPHILS # (AUTO) 4.9 K/uL (1.8-7.7); NEUTROPHILS % (AUTO) 60.4 % (40.0-70.0); PLATELET COUNT (AUTO) 327 K/uL (130-430); RED BLOOD CELL COUNT(AUTO) 3.21 MIL/uL (4.2-6.2); RED CELL DISTRIBUTION WIDTH 13.3 % (9.0-15.0); WHITE BLOOD COUNT (AUTO) 7.9 K/uL (4.8-10.8)
[2017-04-30] MEDS: NACL 0.9% 1,000 ML IV SCH ×2 (07:10→16:37)
[2017-04-30 07:18] LABS: CALCIUM 9.6 mg/dL (8.4-11.0); CREATININE 0.78 mg/dL (0.55-1.30); POTASSIUM 3.6 mmol/L (3.5-5.1)
[2017-04-30 07:56] VITALS: BP_SYST 109; BP_SYST 111
[2017-04-30] MEDS: SENNA 8.8 MG/5 ML UDC GT SCH ×2 (08:40→22:58)
[2017-04-30] MEDS: TERAZOSIN HCL 1 MG CAPSULE (HYTRIN) GT SCH (08:41)
[2017-04-30] MEDS: cefTRIAXone 1 GM in D5W 50 ML IV SCH (08:41)
[2017-04-30] MEDS: POLYETHYLENE GLYCOL 3350, 17 GM/ POWD.PACK GT SCH (08:41)
[2017-04-30] MEDS: TOPIRAMATE 100 MG TABLET(Topamax) GT SCH ×2 (08:42→22:58)
[2017-04-30] MEDS: HEPARIN SODIUM,PORCINE 5000 UNITS/ML VIAL SUBCUT SCH ×2 (08:52→23:03)
[2017-04-30] MEDS: INSULIN ASPART 100 UNITS/ML, 10 ML VIAL (NovoLOG) SUBCUT PRN (12:02)
[2017-04-30 12:26] VITALS: BP_SYST 111
[2017-04-30 16:56] VITALS: BP_SYST 116
[2017-04-30 20:42] VITALS: BP_SYST 125
[2017-05-01 02:16] VITALS: BP_SYST 111
[2017-05-01 04:00] VITALS: BP_SYST 115
[2017-05-01] MEDS: VALPROIC ACID 250 MG CAPSULE (DEPAKENE) GT SCH ×3 (05:32→21:49)
[2017-05-01] MEDS: PHENYTOIN 100 MG/4 ML UDC (DILANTIN) GT SCH ×3 (05:32→21:50)
[2017-05-01] MEDS: LEVOTHYROXINE SODIUM 0.1 MG TABLET GT SCH (05:32)
[2017-05-01] MEDS: NACL 0.9% 1,000 ML IV SCH (05:33)
[2017-05-01] MEDS: INSULIN ASPART 100 UNITS/ML, 10 ML VIAL (NovoLOG) SUBCUT PRN ×2 (06:34→11:55)
[2017-05-01 07:34] LABS: BASOPHILS # (AUTO) 0.1 K/uL (0.0-0.2); BASOPHILS % (AUTO) 0.5 % (0.0-2.0); EOSINOPHILS # (AUTO) 0.3 K/uL (0.0-0.4); EOSINOPHILS % (AUTO) 1.9 % (0.0-4.0); HEMATOCRIT 29.1 % (36-54); HEMOGLOBIN 10.1 g/dL (14.0-18.0); LYMPHOCYTES % (AUTO) 30.5 % (20.5-51.5); MEAN CORPUSCULAR HEMOGLOBIN 32 pg (27-31); MEAN CORPUSCULAR HGB CONC 35 % (32-36); MEAN CORPUSCULAR VOLUME 93 fL (79.0-98.0); MONOCYTES # (AUTO) 2.4 K/uL (0.0-1.0); MONOCYTES % (AUTO) 14.4 % (1.7-9.3); NEUTROPHILS # (AUTO) 8.6 K/uL (1.8-7.7); PLATELET COUNT (AUTO) 293 K/uL (130-430); RED BLOOD CELL COUNT(AUTO) 3.14 MIL/uL (4.2-6.2)
[2017-05-01 08:00] VITALS: BP_SYST 122
[2017-05-01 08:08] LABS: CALCIUM 9.2 mg/dL (8.4-11.0); CREATININE 0.74 mg/dL (0.55-1.30); POTASSIUM 3.6 mmol/L (3.5-5.1)
[2017-05-01 08:59] LABS: NEUTROPHILS % (AUTO) 52.7 % (40.0-70.0); WHITE BLOOD COUNT (AUTO) 16.4 K/uL (4.8-10.8)
[2017-05-01] MEDS: MUPIROCIN 2% TOPICAL OINTMENT 22 GM TP SCH ×2 (09:00→21:00)
[2017-05-01] MEDS: POLYETHYLENE GLYCOL 3350, 17 GM/ POWD.PACK GT SCH (09:55)
[2017-05-01] MEDS: cefTRIAXone 1 GM in D5W 50 ML IV SCH (09:55)
[2017-05-01] MEDS: TERAZOSIN HCL 1 MG CAPSULE (HYTRIN) GT SCH (09:57)
[2017-05-01] MEDS: TOPIRAMATE 100 MG TABLET(Topamax) GT SCH ×2 (09:57→21:50)
[2017-05-01] MEDS: SENNA 8.8 MG/5 ML UDC GT SCH ×2 (09:58→21:49)
[2017-05-01] MEDS: HEPARIN SODIUM,PORCINE 5000 UNITS/ML VIAL SUBCUT SCH ×2 (10:00→21:52)
[2017-05-01] MEDS: LORazepam 2 MG/ML VIAL IVP PRN (10:23)
[2017-05-01 12:00] VITALS: BP_SYST 114
[2017-05-01 16:42] VITALS: BP_SYST 118
[2017-05-01 20:10] VITALS: BP_SYST 129
[2017-05-01] MEDS: AMIKACIN SULFATE 1,000 MG in D5W 100 ML IV SCH (21:49)
[2017-05-02] MEDS: NACL 0.9% 1,000 ML IV SCH ×3 (00:38→17:05)
[2017-05-02] MEDS: VALPROIC ACID 250 MG CAPSULE (DEPAKENE) GT SCH ×3 (05:29→21:25)
[2017-05-02] MEDS: LEVOTHYROXINE SODIUM 0.1 MG TABLET GT SCH (05:30)
[2017-05-02] MEDS: PHENYTOIN 100 MG/4 ML UDC (DILANTIN) GT SCH ×3 (05:32→21:26)
[2017-05-02 06:00] VITALS: BP_SYST 103
[2017-05-02 07:05] LABS: BASOPHILS % (AUTO) 0.4 % (0.0-2.0); EOSINOPHILS # (AUTO) 0.1 K/uL (0.0-0.4); HEMATOCRIT 29.8 % (36-54); HEMOGLOBIN 10.1 g/dL (14.0-18.0); LYMPHOCYTES # (AUTO) 2.4 K/uL (1.0-5.5); LYMPHOCYTES % (AUTO) 31.6 % (20.5-51.5); MEAN CORPUSCULAR HEMOGLOBIN 31 pg (27-31); MEAN CORPUSCULAR HGB CONC 34 % (32-36); MEAN CORPUSCULAR VOLUME 93 fL (79.0-98.0); MONOCYTES # (AUTO) 1.1 K/uL (0.0-1.0); MONOCYTES % (AUTO) 14.4 % (1.7-9.3); NEUTROPHILS # (AUTO) 4.1 K/uL (1.8-7.7); NEUTROPHILS % (AUTO) 52.6 % (40.0-70.0); PLATELET COUNT (AUTO) 328 K/uL (130-430); RED BLOOD CELL COUNT(AUTO) 3.23 MIL/uL (4.2-6.2); RED CELL DISTRIBUTION WIDTH 13.3 % (9.0-15.0); WHITE BLOOD COUNT (AUTO) 7.7 K/uL (4.8-10.8)
[2017-05-02 07:28] LABS: CALCIUM 9.5 mg/dL (8.4-11.0); CREATININE 0.69 mg/dL (0.55-1.30); POTASSIUM 3.3 mmol/L (3.5-5.1)
[2017-05-02 08:21] VITALS: BP_SYST 127
[2017-05-02] MEDS: TOPIRAMATE 100 MG TABLET(Topamax) GT SCH ×2 (09:25→21:25)
[2017-05-02] MEDS: POLYETHYLENE GLYCOL 3350, 17 GM/ POWD.PACK GT SCH (09:26)
[2017-05-02] MEDS: SENNA 8.8 MG/5 ML UDC GT SCH ×2 (09:26→21:25)
[2017-05-02] MEDS: TERAZOSIN HCL 1 MG CAPSULE (HYTRIN) GT SCH (09:26)
[2017-05-02] MEDS: HEPARIN SODIUM,PORCINE 5000 UNITS/ML VIAL SUBCUT SCH ×2 (09:27→21:32)
[2017-05-02] MEDS: MUPIROCIN 2% TOPICAL OINTMENT 22 GM TP SCH ×2 (11:52→21:26)
[2017-05-02 12:00] VITALS: BP_SYST 123
[2017-05-02] MEDS: CEFTAZIDIME/AVIBACTAM 1.25 GM in NS 100 ML IV SCH ×2 (14:00→22:00)
[2017-05-02 17:22] VITALS: BP_SYST 120
[2017-05-02 19:30] VITALS: BP_SYST 122
[2017-05-02] MEDS: AMIKACIN SULFATE 1,000 MG in D5W 100 ML IV SCH (21:00)
[2017-05-02] MEDS: ANTIFUNGAL CLEAR OINTMENT TP SCH (21:34)
[2017-05-02 23:51] VITALS: BP_SYST 114
[2017-05-03 03:56] VITALS: BP_SYST 121
[2017-05-03] MEDS: CEFTAZIDIME/AVIBACTAM 1.25 GM in NS 100 ML IV SCH (05:24)
[2017-05-03] MEDS: VALPROIC ACID 250 MG CAPSULE (DEPAKENE) GT SCH ×3 (06:13→21:15)
[2017-05-03] MEDS: LEVOTHYROXINE SODIUM 0.1 MG TABLET GT SCH (06:14)
[2017-05-03] MEDS: PHENYTOIN 100 MG/4 ML UDC (DILANTIN) GT SCH ×3 (06:14→21:16)
[2017-05-03] MEDS: INSULIN ASPART 100 UNITS/ML, 10 ML VIAL (NovoLOG) SUBCUT PRN (06:15)
[2017-05-03 07:05] LABS: BASOPHILS % (AUTO) 0.3 % (0.0-2.0); EOSINOPHILS # (AUTO) 0.1 K/uL (0.0-0.4); EOSINOPHILS % (AUTO) 1.7 % (0.0-4.0); HEMATOCRIT 29.6 % (36-54); LYMPHOCYTES % (AUTO) 26.9 % (20.5-51.5); MEAN CORPUSCULAR HEMOGLOBIN 31 pg (27-31); MEAN CORPUSCULAR HGB CONC 34 % (32-36); MEAN CORPUSCULAR VOLUME 93 fL (79.0-98.0); MONOCYTES # (AUTO) 0.9 K/uL (0.0-1.0); MONOCYTES % (AUTO) 11.4 % (1.7-9.3); NEUTROPHILS # (AUTO) 4.5 K/uL (1.8-7.7); NEUTROPHILS % (AUTO) 59.7 % (40.0-70.0); PLATELET COUNT (AUTO) 354 K/uL (130-430); RED CELL DISTRIBUTION WIDTH 13.6 % (9.0-15.0); WHITE BLOOD COUNT (AUTO) 7.5 K/uL (4.8-10.8)
[2017-05-03 07:38] LABS: CALCIUM 9.5 mg/dL (8.4-11.0); CREATININE 0.73 mg/dL (0.55-1.30); POTASSIUM 3.5 mmol/L (3.5-5.1)
[2017-05-03 08:20] VITALS: BP_SYST 152
[2017-05-03] MEDS: MUPIROCIN 2% TOPICAL OINTMENT 22 GM TP SCH ×2 (09:00→21:14)
[2017-05-03] MEDS: TOPIRAMATE 100 MG TABLET(Topamax) GT SCH ×2 (09:01→21:15)
[2017-05-03] MEDS: TERAZOSIN HCL 1 MG CAPSULE (HYTRIN) GT SCH (09:01)
[2017-05-03] MEDS: POLYETHYLENE GLYCOL 3350, 17 GM/ POWD.PACK GT SCH (09:01)
[2017-05-03] MEDS: SENNA 8.8 MG/5 ML UDC GT SCH ×2 (09:01→21:14)
[2017-05-03] MEDS: HEPARIN SODIUM,PORCINE 5000 UNITS/ML VIAL SUBCUT SCH ×2 (09:03→21:20)
[2017-05-03] MEDS: ANTIFUNGAL CLEAR OINTMENT TP SCH ×2 (09:04→21:00)
[2017-05-03] MEDS: NACL 0.9% 1,000 ML IV SCH (09:05)
[2017-05-03 11:37] VITALS: BP_SYST 113
[2017-05-03 16:20] VITALS: BP_SYST 105
[2017-05-03 20:00] VITALS: BP_SYST 123
[2017-05-03] MEDS: AMIKACIN SULFATE 1,000 MG in D5W 100 ML IV SCH (22:02)
[2017-05-04 01:09] VITALS: BP_SYST 115
[2017-05-04] MEDS: NACL 0.9% 1,000 ML IV SCH ×2 (03:58→08:50)
[2017-05-04 04:00] VITALS: BP_SYST 147
[2017-05-04] MEDS: LEVOTHYROXINE SODIUM 0.1 MG TABLET GT SCH (06:10)
[2017-05-04] MEDS: PHENYTOIN 100 MG/4 ML UDC (DILANTIN) GT SCH ×3 (06:10→23:27)
[2017-05-04] MEDS: VALPROIC ACID 250 MG CAPSULE (DEPAKENE) GT SCH (06:10)
[2017-05-04 07:34] LABS: BASOPHILS % (AUTO) 0.3 % (0.0-2.0); EOSINOPHILS # (AUTO) 0.2 K/uL (0.0-0.4); EOSINOPHILS % (AUTO) 2.2 % (0.0-4.0); HEMOGLOBIN 10.6 g/dL (14.0-18.0); LYMPHOCYTES # (AUTO) 2.1 K/uL (1.0-5.5); LYMPHOCYTES % (AUTO) 30.8 % (20.5-51.5); MEAN CORPUSCULAR HEMOGLOBIN 32 pg (27-31); MEAN CORPUSCULAR HGB CONC 34 % (32-36); MEAN CORPUSCULAR VOLUME 93 fL (79.0-98.0); MONOCYTES # (AUTO) 0.7 K/uL (0.0-1.0); MONOCYTES % (AUTO) 10.1 % (1.7-9.3); NEUTROPHILS # (AUTO) 3.9 K/uL (1.8-7.7); NEUTROPHILS % (AUTO) 56.6 % (40.0-70.0); PLATELET COUNT (AUTO) 401 K/uL (130-430); RED BLOOD CELL COUNT(AUTO) 3.35 MIL/uL (4.2-6.2); RED CELL DISTRIBUTION WIDTH 13.1 % (9.0-15.0); WHITE BLOOD COUNT (AUTO) 6.9 K/uL (4.8-10.8)
[2017-05-04 07:46] LABS: CALCIUM 9.7 mg/dL (8.4-11.0); CREATININE 0.75 mg/dL (0.55-1.30); POTASSIUM 3.5 mmol/L (3.5-5.1)
[2017-05-04] MEDS: SENNA 8.8 MG/5 ML UDC GT SCH ×2 (08:39→23:17)
[2017-05-04] MEDS: POLYETHYLENE GLYCOL 3350, 17 GM/ POWD.PACK GT SCH (08:39)
[2017-05-04] MEDS: TOPIRAMATE 100 MG TABLET(Topamax) GT SCH ×2 (08:39→23:15)
[2017-05-04] MEDS: MUPIROCIN 2% TOPICAL OINTMENT 22 GM TP SCH ×2 (08:40→23:27)
[2017-05-04] MEDS: HEPARIN SODIUM,PORCINE 5000 UNITS/ML VIAL SUBCUT SCH ×2 (08:43→23:25)
[2017-05-04] MEDS: TERAZOSIN HCL 1 MG CAPSULE (HYTRIN) GT SCH (08:49)
[2017-05-04] MEDS: D5W 1,000 ML IV SCH ×2 (09:45→23:14)
[2017-05-04 12:37] VITALS: BP_SYST 127
[2017-05-04] MEDS: VALPROIC ACID ORAL SYRUP 250 MG/5 ML UDC GT SCH ×2 (13:36→23:26)
[2017-05-04] MEDS: ANTIFUNGAL CLEAR OINTMENT TP SCH ×2 (13:41→23:28)
[2017-05-04 16:46] VITALS: BP_SYST 113
[2017-05-04 20:00] VITALS: BP_SYST 129
[2017-05-04] MEDS: AMIKACIN SULFATE 1,000 MG in D5W 100 ML IV SCH (23:17)
[2017-05-05 01:28] VITALS: BP_SYST 127
[2017-05-05 04:59] VITALS: BP_SYST 124
[2017-05-05] MEDS: VALPROIC ACID ORAL SYRUP 250 MG/5 ML UDC GT SCH ×3 (06:02→21:28)
[2017-05-05] MEDS: LEVOTHYROXINE SODIUM 0.1 MG TABLET GT SCH (06:02)
[2017-05-05] MEDS: PHENYTOIN 100 MG/4 ML UDC (DILANTIN) GT SCH ×3 (06:03→21:28)
[2017-05-05 07:55] VITALS: BP_SYST 148
[2017-05-05] MEDS: POLYETHYLENE GLYCOL 3350, 17 GM/ POWD.PACK GT SCH (09:29)
[2017-05-05] MEDS: SENNA 8.8 MG/5 ML UDC GT SCH ×2 (09:29→21:27)
[2017-05-05] MEDS: TERAZOSIN HCL 1 MG CAPSULE (HYTRIN) GT SCH (09:30)
[2017-05-05] MEDS: MUPIROCIN 2% TOPICAL OINTMENT 22 GM TP SCH ×2 (09:31→21:29)
[2017-05-05] MEDS: TOPIRAMATE 100 MG TABLET(Topamax) GT SCH ×2 (09:31→21:28)
[2017-05-05] MEDS: ANTIFUNGAL CLEAR OINTMENT TP SCH ×2 (09:32→21:30)
[2017-05-05] MEDS: HEPARIN SODIUM,PORCINE 5000 UNITS/ML VIAL SUBCUT SCH ×2 (09:33→21:49)
[2017-05-05] MEDS: D5W 1,000 ML IV SCH (11:55)
[2017-05-05 12:52] VITALS: BP_SYST 111
[2017-05-05 16:29] VITALS: BP_SYST 117
[2017-05-05 20:00] VITALS: BP_SYST 130
[2017-05-05] MEDS: AMIKACIN SULFATE 1,000 MG in D5W 100 ML IV SCH (21:27)
[2017-05-06] VITALS (7 sets, daily range): BP systolic 105–140
[2017-05-06] MEDS: D5W 1,000 ML IV SCH ×2 (02:56→15:42)
[2017-05-06] MEDS: LORazepam 2 MG/ML VIAL IVP PRN (03:02)
[2017-05-06] MEDS: PHENYTOIN 100 MG/4 ML UDC (DILANTIN) GT SCH ×3 (05:59→21:51)
[2017-05-06] MEDS: VALPROIC ACID ORAL SYRUP 250 MG/5 ML UDC GT SCH ×3 (05:59→21:50)
[2017-05-06] MEDS: LEVOTHYROXINE SODIUM 0.1 MG TABLET GT SCH (05:59)
[2017-05-06] MEDS: POLYETHYLENE GLYCOL 3350, 17 GM/ POWD.PACK GT SCH (09:00)
[2017-05-06] MEDS: SENNA 8.8 MG/5 ML UDC GT SCH ×2 (09:00→21:44)
[2017-05-06] MEDS: TOPIRAMATE 100 MG TABLET(Topamax) GT SCH ×2 (09:37→21:44)
[2017-05-06] MEDS: TERAZOSIN HCL 1 MG CAPSULE (HYTRIN) GT SCH (09:38)
[2017-05-06] MEDS: HEPARIN SODIUM,PORCINE 5000 UNITS/ML VIAL SUBCUT SCH ×2 (09:41→22:01)
[2017-05-06] MEDS: MUPIROCIN 2% TOPICAL OINTMENT 22 GM TP SCH ×2 (09:42→21:45)
[2017-05-06] MEDS: ANTIFUNGAL CLEAR OINTMENT TP SCH ×2 (09:56→21:45)
[2017-05-06] MEDS: INSULIN ASPART 100 UNITS/ML, 10 ML VIAL (NovoLOG) SUBCUT PRN (17:56)
[2017-05-06] MEDS: AMIKACIN SULFATE 1,000 MG in D5W 100 ML IV SCH (21:44)
[2017-05-07] VITALS (7 sets, daily range): BP systolic 103–142
[2017-05-07] MEDS: D5W 1,000 ML IV SCH (04:07)
[2017-05-07] MEDS: VALPROIC ACID ORAL SYRUP 250 MG/5 ML UDC GT SCH ×2 (05:43→15:22)
[2017-05-07] MEDS: PHENYTOIN 100 MG/4 ML UDC (DILANTIN) GT SCH ×2 (05:44→15:22)
[2017-05-07] MEDS: LEVOTHYROXINE SODIUM 0.1 MG TABLET GT SCH (05:44)
[2017-05-07] MEDS: SENNA 8.8 MG/5 ML UDC GT SCH (10:10)
[2017-05-07] MEDS: HEPARIN SODIUM,PORCINE 5000 UNITS/ML VIAL SUBCUT SCH (10:10)
[2017-05-07] MEDS: POLYETHYLENE GLYCOL 3350, 17 GM/ POWD.PACK GT SCH (10:10)
[2017-05-07] MEDS: TOPIRAMATE 100 MG TABLET(Topamax) GT SCH (10:11)
[2017-05-07] MEDS: TERAZOSIN HCL 1 MG CAPSULE (HYTRIN) GT SCH (10:11)
[2017-05-07] MEDS: MUPIROCIN 2% TOPICAL OINTMENT 22 GM TP SCH (10:12)
[2017-05-07] MEDS: ANTIFUNGAL CLEAR OINTMENT TP SCH (10:13)
[2017-05-07] MEDS: AMIKACIN SULFATE 1,000 MG in D5W 100 ML IV SCH (17:32)
== END 2017-05-07 20:26 | DRG 393 ==
LOC: SED 13:44 → STU 16:01 → SMU 04-30 20:58
PROVIDERS: ADMIT General Practice; ATTEND General Practice
DX: K94.23 Gastrostomy malfunction (principal); A41.9 Sepsis, unspecified organism; E44.0 Moderate protein-calorie malnutrition; L03.311 Cellulitis of abdominal wall; R13.10 Dysphagia, unspecified; N31.9 Neuromuscular dysfunction of bladder, unspecified; N39.0 Urinary tract infection, site not specified; Y83.3 Surgical operation with formation of external stoma as the cause of abnormal reaction of the patient, or of later complication, without mention of misadventure at the time of the procedure; E03.9 Hypothyroidism, unspecified; G40.909 Epilepsy, unspecified, not intractable, without status epilepticus; R62.50 Unspecified lack of expected normal physiological development in childhood; K94.22 Gastrostomy infection; F19.10 Other psychoactive substance abuse, uncomplicated; Z16.24 Resistance to multiple antibiotics; F79 Unspecified intellectual disabilities; B96.5 Pseudomonas (aeruginosa) (mallei) (pseudomallei) as the cause of diseases classified elsewhere; F03.90 Unspecified dementia, unspecified severity, without behavioral disturbance, psychotic disturbance, mood disturbance, and anxiety; Y92.89 Other specified places as the place of occurrence of the external cause; Z68.23 Body mass index [BMI] 23.0-23.9, adult; Z22.322 Carrier or suspected carrier of Methicillin resistant Staphylococcus aureus; Z78.9 Other specified health status
CPT/HCPCS: 36415; 71010; 80048; 80053; 80150; 81000-TC; 82962; 83605; 83735-TC; 84484; 85007; 85025; 85027; 85610-TC; 85730-TC; 87040-TC; 87081; 87086; 87186-TC; 93005; 94760; 96361; 96365; 99285; J0278; J0696; J0713; J1644; J1815; J2060; J7030; J7060